=== PATIENT | male | born 1980 | race Caucasian/White ===

== ENCOUNTER 2016-04-18 17:13 | Emergency (ER) | payer OTHER ==
--- NOTE | 2016-04-18 19:04 | DIAGNOSTIC IMAGING REPORT ---
PROCEDURE: CT ABD/PELVIS WITH CONTRAST CLINICAL INDICATION: ABDOMINAL PAIN, initial encounter TECHNIQUE: 94 ml of Isovue 300 were injected intravenously and axial images were obtained of the entire abdomen and pelvis with sagittal and coronal reformations. COMPARISON: CT abdomen/pelvis 11/27/2015 FINDINGS: ABDOMEN: Wall thickening of the ascending and proximal transverse colon suggestive of colitis. There is fluid in the descending colon. There are multiple nondilated fluid filled loops of small bowel. Lung base are clear. Heart size is normal. Liver, gallbladder, pancreas, spleen, adrenal glands, kidneys and abdominal aorta are normal. PELVIS: Normal appendix. There is no pelvic mass, inflammatory changes or free fluid. Mild L5-S1 disc space narrowing. IMPRESSION: 1. Findings suggestive of colitis and enterocolitis 2. Results discussed with Jackeline Dunn All CT scans at this facility use dose modulation, iterative reconstruction, and/or weight-based dosing when appropriate to reduce radiation dose to as low as reasonably achievable.
--- NOTE | 2016-04-18 19:06 | ED CLINICAL REPORT ---
Clinical Report - Physicians/Mid Levels [facility] [address] [place] [address] 04/18/2016 17:14 Patient: CARLYLE OCONNOR Time Seen: 17:43 Apr 18 2016. Arrived- By private vehicle. Historian- patient. HISTORY OF PRESENT ILLNESS Chief Complaint: ABDOMINAL PAIN. It is described as "pain". (Patient reports off and on abdominal pain since November, has had hematochezia. Abd pain with diarrhea. REports no fevers/ back pain.). Recent medical care: The patient was seen recently by a health care provider (office on the with lab work, and dropped off stool sample today). REVIEW OF SYSTEMS No constipation, difficulty with urination, pain with urination, fever or headache. No sore throat, cough or chills. All systems otherwise negative, except as recorded above. SOCIAL HISTORY Former smoker. Alcohol use. ADDITIONAL NOTES The nursing notes have been reviewed. PHYSICAL EXAM Vital Signs: 04/18/2016 17:22 BP: 113/78. HR: 78. RR: 12. O2 saturation: 100%. Temp: 98.4 F. Pain level now: 5/10. Appearance: Alert. Eyes: Eyes normal inspection. ENT: Ears normal. Nose normal. CVS: Normal heart rate and rhythm. Heart sounds normal. Respiratory: No respiratory distress. Breath sounds normal. Abdomen: Soft. Tenderness. Back: Normal inspection. No CVA tenderness. Skin: Skin warm. Normal skin color. Neuro: Oriented X 3. No motor deficit. LABS, X-RAYS, AND EKG Abdominal CT: IMPRESSION: 1. Findings suggestive of colitis and enterocolitis 2. Results discussed with Jackeline Dunn All CT scans at this facility use dose modulation, iterative reconstruction, and/or weight-based dosing when appropriate to reduce radiation dose to as low as reasonably achievable. Electronically Final signed by:Brendan Louis MD 04/18/2016 7:04:27 PM. Laboratory Tests: CBC w Diff: (ANGELICA: 04/18/2016 17:50) ( MsgRcvd 04/18/2016 18:43) Final results Test Result Flag Units (Reference) WHITE BLOOD COUNT 7.8 K/uL (4.5-11.5) RED BLOOD COUNT 5.04 M/uL (4.50-5.90) HEMOGLOBIN 14.9 gm/dL (13.5-17.5) HEMATOCRIT 44.4 % (41.0-53.0) MEAN CELL VOLUME 88 fL (80-100) MEAN CORPUSCULAR HGB 30 pg (26-34) MEAN CORPUSCULAR HGB CONC 34 g/dL (31-37) RED CELL DISTRIBUTION WIDTH 13.5 % (11.6-14.8) PLATELET COUNT 326 K/uL (150-400) NEUTROPHIL % 62.2 % (50-75) LYMPH % 27.8 % (25-40) MONO % 6.2 % (3-14) EOSINOPHIL % 3.6 % (0-4) BASOPHIL % 0.2 % (0-2) CMP: (ANGELICA: 04/18/2016 17:50) ( MsgRcvd 04/18/2016 19:00) Final results Test Result Flag Units (Reference) GLUCOSE 109 mg/dL (70-110) BUN 13 mg/dL (7-18) CREATININE 0.9 mg/dL (0.6-1.3) Estimated GFR >60 mL/min Estimated GFR- >60 mL/min Note: Persistent reduction over 3 months in eGFR<60 mL/min/1.73 m2 defines CKD. Patients with eGFR values>=60 mL/min/1.73 m2 may also have CKD if evidence ofpersistent proteinuria. Additional information may be foundat www.kidney.org. SODIUM 140 mmol/L (136-145) POTASSIUM 4.9 mmol/L (3.5-5.1) CHLORIDE 108 H mmol/L (98-107) CARBON DIOXIDE 22 mmol/L (21-32) CALCIUM 8.5 mg/dL (8.5-10.1) TOTAL PROTEIN 7.6 g/dL (6.4-8.2) ALBUMIN 3.9 g/dL (3.3-5.0) BILIRUBIN, TOTAL 0.4 mg/dL (0.0-1.0) ALKALINE PHOSPHATASE 85 U/L (46-116) AST (SGOT) 20 U/L (15-37) ALT (SGPT) 21 U/L (12-78) . PROGRESS AND PROCEDURES Course of Care: Pt denies any masses of external rectum, deferred rectal exam as he reports he recently had stool for sample. here in the ER labs are unremarkable, CT abdomen and pelvis with signs of colitis, may be chronic in nature, patient is referred to surgery or GI, to consider ulcerative colitis, and other diagnoses of such. Denies any family history of. Otherwise here in the ER afebrile, and a nonsurgical abdomen is present. Patient/family counseled. Differential Diagnosis: I considered gastritis, intraabdominal abscess, ascites, spontaneous bacterial peritonitis, urinary tract infection, cystitis, prostatitis, ureterolithiasis, ovarian cyst, ovarian torsion and pelvic abscess as a possible cause of abdominal pain in this patient. This is a partial list of diagnoses considered. Disposition: Discharged. CLINICAL IMPRESSION Acute abdominal pain of unknown cause. Chronic colitis. INSTRUCTIONS Drink plenty of fluids. Prescription Medications: Ultram 50 mg: take 1 orally every 6 hours for 3 days, as needed for pain. Dispense fifteen (15). No refills. Substitution is permissible. Follow-up: Follow up with your doctor in three days. Follow-up with: Dean Blanton MD, General Surgeon, , [facility], [address] [place] [address] (Electronically signed by Kathia Dunn P.A.-C 04/18/2016 19:13)
--- NOTE | 2016-04-18 19:06 | ED ORDER SUMMARY ---
..... Patient: CARLYLE OCONNOR OrderSheet [facility] VisitID: [id number] [address] [place] [address] 35y, M Registration Date/Time: 04/18/2016 ORDER SHEET Weight: 62.5 kg (stated) Allergies: Codeine, Penicillins GENERAL ORDERS: CBC w Diff Urgent (18:00 04/18/2016 EKoroleva P.A.-C) (Ack 18:03 LTapper) (18:36 EHassan R.N.) CMP Urgent (18:00 04/18/2016 EKoroleva P.A.-C) (Ack 18:03 LTapper) (18:36 EHassan R.N.) PT with INR Urgent (18:00 04/18/2016 EKoroleva P.A.-C) (Ack 18:03 LTapper) (18:36 EHassan R.N.) PTT Urgent (18:00 04/18/2016 EKoroleva P.A.-C) (Ack 18:03 LTapper) (18:36 EHassan R.N.) CT Abd/Pel w Cont (No) (03.20) Urgent (18:21 04/18/2016 EKoroleva P.A.-C) (Ack 18:36 EHassan R.N.) (18:39 LTapper) MEDICATION ORDERS: IV FLUIDS: IV Saline Lock (18:00 04/18/2016 EKoroleva P.A.-C) (18:36 EHassan R.N.) ORDER SHEET NOTES: [Electronically signed by Kathia DunnAShannan-C (19:13 04/18/2016)] [Electronically signed by Colleen Jennings R.N. (19:29 04/18/2016)] [Electronically locked/signed by Colleen Jennings R.N. (19:04/18/2016)]
--- NOTE | 2016-04-18 19:06 | ED NURSING NOTES ---
Clinical Report - Nurses [facility] [address] [place] [address] 04/18/2016 17:14 Patient: CARLYLE OCONNOR TRIAGE Triage time 1720 PM. Acuity: LEVEL 3. Chief Complaint: ABDOMINAL PAIN, NAUSEA, VOMITING and DIARRHEA. Alert. No acute distress. SEPSIS SCREEN: Sepsis Screen. Negative (no infection suspected/documented). MONIK COMA SCORE: Monik Coma Scale: 15- eyes open spontaneously (4); best verbal response- oriented x 4 (5); best motor response- obeys commands (6). --17:34 Colleen Jennings R.N. 17:22 04/18/16. BP: 113/78 (regular adult cuff) taken on the left arm, via an automated monitor, while sitting. HR: 78. RR: 12. O2 saturation: 100% on room air. Temp: 98.4 F (oral). Pain level now: 07/27. --17:34 Colleen Jennings R.N. Weight: 62.5 kg stated. Height/Length: 68 inches Per Patient. BMI: 21. --17:26 Colleen Jennings R.N. Medications Albuterol Sulfate HFA Inhalation. --17:26 Colleen Jennings R.N. Medication/allergy information source: the patient. --17:34 Colleen Jennings R.N. Allergies Codeine. Penicillins. --17:26 Colleen Jennings R.N. History Arrived by private vehicle, and accompanied by family. Primary physician (Dr. Noonan). ( PT states came to ED due to recurrent bloody stools, abdominal pain, cramping, weak, fatigue, diarrhea approximately 12 times to 20 times a day, mucous. Has been seen multiple times in . Has come here "because I cannot take the pain and abdominal pain"). ( This started since Nov a trip from [place], has been seen multiple times for this and has been tested "but everything comes back negative"). He has had fever, nausea, vomiting, diarrhea and abdominal pain. Treatment ACCESS CONTROL OFFICER: None. PAST MEDICAL HX: Immunizations: up-to-date. SOCIAL HX: Former smoker, end date 2003. Occasional alcohol use; consumes beer occasionally. No drug use. Recent travel. No infectious disease exposure. ABUSE ASSESSMENT: No report of abuse. SELF HARM ASSESSMENT: A self harm assessment was performed. The patient answered "no" to the question "Do you have thoughts of harming or killing yourself?" and "Have you recently had thoughts about harming or killing others?". FALL RISK ASSESSMENT: Fall risk assessment completed. No fall risk identified. NUTRITIONAL RISK ASSESSMENT: The nutritional risk assessment revealed no deficiencies. FUNCTIONAL ASSESSMENT: Functional assessment: no impairments noted. LEARNING NEEDS ASSESSMENT: The learning needs assessment revealed no barriers. SKIN INTEGRITY ASSESSMENT: Skin integrity risk assessment completed. No skin integrity risk identified. --17:34 Colleen Jennings R.N. PROBLEMS: Diarrhea. Vomiting. Abdominal Pain. GI Bleeding. Ureterolithiasis. Recent Travel. Asthma. --17:26 Colleen Jennings R.N. ADDITIONAL SURGERIES: no known surgeries. Interventions ID band on patient. --17:34 Colleen Jennings R.N. PHYSICAL ASSESSMENT Ambulatory to room. GENERAL / NEURO / PSYCH: Alert. Oriented X 4. Appears in no acute distress. HEENT: Mucous membranes are pink. RESPIRATORY: Respirations not labored. Breath sounds within normal limits. CVS: Capillary refill less than 2 seconds. GI / : The patient has had nausea. Abdomen soft. Abdominal tenderness. Hyperactive bowel sounds in all quadrants. Bowel sounds within normal limits. SKIN: Skin is warm and dry. --17:33 Colleen Jennings R.N. NURSING PROGRESS NOTES The initial plan of care for this patient has been created This plan of care was discussed with the patient. Patient gowned. Warming measures: blanket applied. Reassurance given. Two patient identifiers checked. Call light placed in reach. Side rails up x 1. Bed placed in lowest position. Brakes of bed on. Brakes of chair on. --17:33 Colleen Jennings R.N. 18:01 04/18/2016 Site #1 started via IV in the left antecubital space with an 20g angiocath; one attempt. Blood drawn. Saline lock flushed. --18:16 Colleen Jennings R.N. Reassurance given. ( Pt's IV on the right FA placed, but as per pt "it feels like you punched me on the arm", when flushed, IV taken out. New one placed on the left AC, labs sent but coagulated as per lab, attempted to draw blood from it, refusing another lab drawn. AMBER Logan aware, pt educated but stated "I botched him twice", apologized for feeling that way. Will monitor). --18:20 Colleen Jennings R.N. Patient walked back to ED from CT. (1842 PM). --18:42 Colleen Jennings R.N. DISPOSITION / DISCHARGE 19:24 04/18/2016 Site #1 removed upon discharge. Manual pressure and bandaid applied. --19:24 Colleen Jennings R.N. Departure time: 1925 PM. Condition at departure: unchanged and stable. The goals identified in the patient's plan of care were met. No learning barriers present. Reviewed medication(s) side effects, precautions, dosing and course information. Prescription(s) given to the patient. Reviewed referral to a surgeon for followup. Patient verbalized understanding. Written instructions provided in Turkish. ( Pt verbalizes understanding of instructions and follow-up, 1st IV site "which hurts" no drainage no redness, site intact. Script given to pt). The patient was discharged by the physician food and beverage assistant manager. He was discharged home and unaccompanied at time of discharge. He left the Emergency Department ambulatory and via private vehicle. FALL RISK ASSESSMENT: Fall risk assessment completed. No fall risk identified. --19:28 Colleen Jennings R.N. 19:20 04/18/16. BP: 125/78 (regular adult cuff) taken on the left arm, via an automated monitor, while lying. HR: 71. RR: 18. O2 saturation: 100% on room air. Temp: 98.2 F (oral). Pain level now: 08/27. --19:28 Colleen Jennings R.N. Locked/Released at 04/18/2016 19:29 by Colleen Jennings R.N.
--- NOTE | 2016-04-18 19:06 | ED ORDER SUMMARY ---
..... Patient: CARLYLE OCONNOR OrderSheet [facility] VisitID: [id number] [address] [place] [address] 35y, M Registration Date/Time: 04/18/2016 ORDER SHEET Weight: 62.5 kg (stated) Allergies: Codeine, Penicillins GENERAL ORDERS: CBC w Diff Urgent (18:00 04/18/2016 EKoroleva P.A.-C) (Ack 18:03 LTapper) (18:36 EHassan R.N.) CMP Urgent (18:00 04/18/2016 EKoroleva P.A.-C) (Ack 18:03 LTapper) (18:36 EHassan R.N.) PT with INR Urgent (18:00 04/18/2016 EKoroleva P.A.-C) (Ack 18:03 LTapper) (18:36 EHassan R.N.) PTT Urgent (18:00 04/18/2016 EKoroleva P.A.-C) (Ack 18:03 LTapper) (18:36 EHassan R.N.) CT Abd/Pel w Cont (No) (03.20) Urgent (18:21 04/18/2016 EKoroleva P.A.-C) (Ack 18:36 EHassan R.N.) (18:39 LTapper) MEDICATION ORDERS: IV FLUIDS: IV Saline Lock (18:00 04/18/2016 EKoroleva P.A.-C) (18:36 EHassan R.N.) ORDER SHEET NOTES: [Electronically signed by Kathia DunnAShannan-C (19:13 04/18/2016)] [Electronically signed by Colleen Jennings R.N. (19:29 04/18/2016)] [Electronically locked/signed by Colleen Jennings R.N. (19:04/18/2016)]
--- NOTE | 2016-04-18 19:06 | ED CLINICAL REPORT ---
Clinical Report - Physicians/Mid Levels [facility] [address] [place] [address] 04/18/2016 17:14 Patient: CARLYLE OCONNOR Time Seen: 17:43 Apr 18 2016. Arrived- By private vehicle. Historian- patient. HISTORY OF PRESENT ILLNESS Chief Complaint: ABDOMINAL PAIN. It is described as "pain". (Patient reports off and on abdominal pain since November, has had hematochezia. Abd pain with diarrhea. REports no fevers/ back pain.). Recent medical care: The patient was seen recently by a health care provider (office on the with lab work, and dropped off stool sample today). REVIEW OF SYSTEMS No constipation, difficulty with urination, pain with urination, fever or headache. No sore throat, cough or chills. All systems otherwise negative, except as recorded above. SOCIAL HISTORY Former smoker. Alcohol use. ADDITIONAL NOTES The nursing notes have been reviewed. PHYSICAL EXAM Vital Signs: 04/18/2016 17:22 BP: 113/78. HR: 78. RR: 12. O2 saturation: 100%. Temp: 98.4 F. Pain level now: 5/10. Appearance: Alert. Eyes: Eyes normal inspection. ENT: Ears normal. Nose normal. CVS: Normal heart rate and rhythm. Heart sounds normal. Respiratory: No respiratory distress. Breath sounds normal. Abdomen: Soft. Tenderness. Back: Normal inspection. No CVA tenderness. Skin: Skin warm. Normal skin color. Neuro: Oriented X 3. No motor deficit. LABS, X-RAYS, AND EKG Abdominal CT: IMPRESSION: 1. Findings suggestive of colitis and enterocolitis 2. Results discussed with Jackeline Dunn All CT scans at this facility use dose modulation, iterative reconstruction, and/or weight-based dosing when appropriate to reduce radiation dose to as low as reasonably achievable. Electronically Final signed by:Brendan Louis MD 04/18/2016 7:04:27 PM. Laboratory Tests: CBC w Diff: (ANGELICA: 04/18/2016 17:50) ( MsgRcvd 04/18/2016 18:43) Final results Test Result Flag Units (Reference) WHITE BLOOD COUNT 7.8 K/uL (4.5-11.5) RED BLOOD COUNT 5.04 M/uL (4.50-5.90) HEMOGLOBIN 14.9 gm/dL (13.5-17.5) HEMATOCRIT 44.4 % (41.0-53.0) MEAN CELL VOLUME 88 fL (80-100) MEAN CORPUSCULAR HGB 30 pg (26-34) MEAN CORPUSCULAR HGB CONC 34 g/dL (31-37) RED CELL DISTRIBUTION WIDTH 13.5 % (11.6-14.8) PLATELET COUNT 326 K/uL (150-400) NEUTROPHIL % 62.2 % (50-75) LYMPH % 27.8 % (25-40) MONO % 6.2 % (3-14) EOSINOPHIL % 3.6 % (0-4) BASOPHIL % 0.2 % (0-2) CMP: (ANGELICA: 04/18/2016 17:50) ( MsgRcvd 04/18/2016 19:00) Final results Test Result Flag Units (Reference) GLUCOSE 109 mg/dL (70-110) BUN 13 mg/dL (7-18) CREATININE 0.9 mg/dL (0.6-1.3) Estimated GFR >60 mL/min Estimated GFR- >60 mL/min Note: Persistent reduction over 3 months in eGFR<60 mL/min/1.73 m2 defines CKD. Patients with eGFR values>=60 mL/min/1.73 m2 may also have CKD if evidence ofpersistent proteinuria. Additional information may be foundat [email or web address].org. SODIUM 140 mmol/L (136-145) POTASSIUM 4.9 mmol/L (3.5-5.1) CHLORIDE 108 H mmol/L (98-107) CARBON DIOXIDE 22 mmol/L (21-32) CALCIUM 8.5 mg/dL (8.5-10.1) TOTAL PROTEIN 7.6 g/dL (6.4-8.2) ALBUMIN 3.9 g/dL (3.3-5.0) BILIRUBIN, TOTAL 0.4 mg/dL (0.0-1.0) ALKALINE PHOSPHATASE 85 U/L (46-116) AST (SGOT) 20 U/L (15-37) ALT (SGPT) 21 U/L (12-78) . PROGRESS AND PROCEDURES Course of Care: Pt denies any masses of external rectum, deferred rectal exam as he reports he recently had stool for sample. here in the ER labs are unremarkable, CT abdomen and pelvis with signs of colitis, may be chronic in nature, patient is referred to surgery or GI, to consider ulcerative colitis, and other diagnoses of such. Denies any family history of. Otherwise here in the ER afebrile, and a nonsurgical abdomen is present. Patient/family counseled. Differential Diagnosis: I considered gastritis, intraabdominal abscess, ascites, spontaneous bacterial peritonitis, urinary tract infection, cystitis, prostatitis, ureterolithiasis, ovarian cyst, ovarian torsion and pelvic abscess as a possible cause of abdominal pain in this patient. This is a partial list of diagnoses considered. Disposition: Discharged. CLINICAL IMPRESSION Acute abdominal pain of unknown cause. Chronic colitis. INSTRUCTIONS Drink plenty of fluids. Prescription Medications: Ultram 50 mg: take 1 orally every 6 hours for 3 days, as needed for pain. Dispense fifteen (15). No refills. Substitution is permissible. Follow-up: Follow up with your doctor in three days. Follow-up with: Dean Blanton MD, General Surgeon, , [facility], [address] [place] [address] (Electronically signed by Kathia Dunn P.A.-C 04/18/2016 19:13)
--- NOTE | 2016-04-18 19:29 | ED MED RECONCILIATION SUMMARY ---
Patient: CARLYLE OCONNOR Medication Reconciliation Report [facility] VisitID: [id number] [address] [place] [address] 35y, M Registration Date/Time: 04/18/2016 Weight: 62.5 kg Height/Length: 68 in. BMI: 21.0 ALLERGIES: Codeine, Penicillins The patient's Home Medications are listed below: THE FOLLOWING MEDICATIONS NEED TO BE RECONCILED: Albuterol Sulfate HFA Inhalation The source(s) of the original Home Medication information: patient The following Medications were given to the patient in the Emergency Department: None. The following Medications were prescribed to the patient: Ultram 50 mg: take 1 orally every 6 hours for 3 days, as needed for pain. Dispense fifteen (15). No refills. Substitution is permissible. -- Kathia Dunn P.A.-C
--- NOTE | 2016-04-18 19:29 | ED MAR SUMMARY ---
..... Medication Administration Record [facility] [address] [place], [place] [id number] Patient: CARLYLE OCONNOR Visit ID: [id number] 35y, M Weight: 62.5 kg Height/Length: 68 in BMI: 21 ALLERGIES: Codeine, Penicillins
--- NOTE | 2016-04-18 19:29 | ED DISCHARGE INSTRUCTIONS ---
Patient: CARLYLE OCONNOR General Instructions [facility] VisitID: [id number] [address] [place], [place] [id number] 35y, M Registration Date/Time: 04/18/2016 Acute abdominal pain of unknown cause. Chronic colitis. INSTRUCTIONS Drink plenty of fluids. Prescription Medications: Ultram 50 mg: take 1 orally every 6 hours for 3 days, as needed for pain. Dispense fifteen (15). No refills. Substitution is permissible. Follow-up: Follow up with your doctor in three days. Follow-up with: Dean Blanton MD, General Surgeon, , [facility], [address] [place] [address], [facility] [id number] ADDITIONAL INFORMATION Symptoms With Uncertain Cause [Adult] Based on the exam and any tests that were performed today, the exact cause of your symptoms is not certain. While your condition does not seem serious, the signs of a serious problem may take more time to appear. Therefore, it is important for you to watch for any new symptoms or worsening of your condition.Follow up with your doctor or this facility, as directed.A repeat physical exam or additional testing at a later time may uncover a cause for your symptoms that is not evident today. Home Care: Resume your usual activities and diet when this feels comfortable to do so. Follow Up with your doctor, or as advised by our staff.Contact your doctor sooner if your symptoms do not begin to improve in the next few days. [NOTE: If you had an x-ray, CT scan, ultrasound, or ECG (electrocardiogram), it will be reviewed by a specialist. You will be notified of any new findings that may affect your care.] Get Prompt Medical Attention if any of the following occur: Current symptoms get worse New symptoms appear [place] Diet A bland diet is used for patients with an upset stomach. It consists of foods that are mild and easy to digest. It is better to eat small frequent meals rather than three large meals a day. BEVERAGES OK: Fruit juices, non-caffeinated teas and coffee, non-carbonated haley AVOID: Carbonated beverage, caffeinated tea and coffee, all alcoholic beverages BREAD OK: Refined white, wheat or rye bread, whit or soda crackers, [place] toast, plain rolls, bagels AVOID: Whole-grain bread CEREAL OK: Refined cereals: cooked or ready to eat AVOID: Whole grain cereals and granola, or those containing bran, seeds or nuts DESSERTS OK: Peanut butter and all others except those to "avoid" AVOID: Chocolate, cocoa, coconut, popcorn, nuts, seeds, jam, marmalade FRUITS OK: Canned, cooked, frozen or fresh fruits without seeds or tough skin AVOID: Olives, skin and seeds of fruit MEATS OK: All fresh or preserved meat, fish and fowl AVOID: Any that are prepared with those spices to "avoid" CHEESE & EGGS OK: Eggs, cottage cheese, cream cheese, other cheeses AVOID: All cheeses made with those spices to "avoid" POTATOES & PASTA OK: Potato, rice, macaroni, noodles, spaghetti AVOID: None SOUPS OK: All soups without heavy seasoning AVOID: Soups made with those spices to "avoid" VEGETABLES OK: Canned, cooked, fresh or frozen mildly flavored vegetables without seeds, skins or coarse fiber AVOID: Vegetables prepared with those spices to "avoid"; skin and seeds of vegetables and those with coarse fiber SPICES OK: Salt, lemon and [place] juice, vinegar, all extracts, ciarra, cinnamon, thyme, mace, allspice, paprika AVOID: [place] powder, cloves, pepper, seed spices, garlic, gravy pickles, highly seasoned salad dressings Clear Liquid Diet Clear liquids are any liquid that you can see through as well as those that are very easy to digest. This is used while the body is recovering from irritation or infection of the stomach or intestinal tract. It may also be used before special procedures or surgery. This diet is to be used no more than three days. You may include the following items. Adults Adults should drink a total of 23 quarts of liquid per day. It may be easier to drink small frequent servings rather than a few large ones. Liquids can include: Fruit juices.Strained orange juice or lemonade (no pulp), apple, grape and cranberry juice, clear fruit drinks, sports drinks Beverages.Sport drinks, sodas, mineral water (plain or flavored), tea, black coffee, liquid gelatin (add twice the recommended amount of water) Soups.Clear broth, consomm, bouillon Desserts.Plain gelatin, popsicles, fruit juice bars Children Over 2 years old The following liquids are acceptable for children over age 2: Fruit juices.Strained orange juice or lemonade (no pulp), apple, grape and cranberry juice, clear fruit drinks Beverages. Sports drinks, sodas, mineral water (plain or flavored), tea, liquid gelatin (add twice the recommended amount of water) Soups. Clear broth, consomm, bouillon Desserts. Plain gelatin, popsicles, fruit juice bars Children under 2 years old Oral rehydration fluids such are available at drug stores and most grocery stores without a prescription. You have been given the following additional information: Symptoms With Uncertain Cause Diet, [place] (Adult) Diet, Clear Liquid (Electronically signed by Kathia Dunn P.A.-C 04/18/2016 19:13)
--- NOTE | 2016-04-18 19:29 | ED DISCHARGE INSTRUCTIONS ---
Patient: CARLYLE OCONNOR General Instructions [facility] VisitID: [id number] [address] [place], [place] [id number] 35y, M Registration Date/Time: 04/18/2016 Acute abdominal pain of unknown cause. Chronic colitis. INSTRUCTIONS Drink plenty of fluids. Prescription Medications: Ultram 50 mg: take 1 orally every 6 hours for 3 days, as needed for pain. Dispense fifteen (15). No refills. Substitution is permissible. Follow-up: Follow up with your doctor in three days. Follow-up with: Dean Blanton MD, General Surgeon, , [facility], [address] [place] [address], [facility] [id number] ADDITIONAL INFORMATION Symptoms With Uncertain Cause [Adult] Based on the exam and any tests that were performed today, the exact cause of your symptoms is not certain. While your condition does not seem serious, the signs of a serious problem may take more time to appear. Therefore, it is important for you to watch for any new symptoms or worsening of your condition.Follow up with your doctor or this facility, as directed.A repeat physical exam or additional testing at a later time may uncover a cause for your symptoms that is not evident today. Home Care: Resume your usual activities and diet when this feels comfortable to do so. Follow Up with your doctor, or as advised by our staff.Contact your doctor sooner if your symptoms do not begin to improve in the next few days. [NOTE: If you had an x-ray, CT scan, ultrasound, or ECG (electrocardiogram), it will be reviewed by a specialist. You will be notified of any new findings that may affect your care.] Get Prompt Medical Attention if any of the following occur: Current symptoms get worse New symptoms appear [place] Diet A bland diet is used for patients with an upset stomach. It consists of foods that are mild and easy to digest. It is better to eat small frequent meals rather than three large meals a day. BEVERAGES OK: Fruit juices, non-caffeinated teas and coffee, non-carbonated haley AVOID: Carbonated beverage, caffeinated tea and coffee, all alcoholic beverages BREAD OK: Refined white, wheat or rye bread, whit or soda crackers, [place] toast, plain rolls, bagels AVOID: Whole-grain bread CEREAL OK: Refined cereals: cooked or ready to eat AVOID: Whole grain cereals and granola, or those containing bran, seeds or nuts DESSERTS OK: Peanut butter and all others except those to "avoid" AVOID: Chocolate, cocoa, coconut, popcorn, nuts, seeds, jam, marmalade FRUITS OK: Canned, cooked, frozen or fresh fruits without seeds or tough skin AVOID: Olives, skin and seeds of fruit MEATS OK: All fresh or preserved meat, fish and fowl AVOID: Any that are prepared with those spices to "avoid" CHEESE & EGGS OK: Eggs, cottage cheese, cream cheese, other cheeses AVOID: All cheeses made with those spices to "avoid" POTATOES & PASTA OK: Potato, rice, macaroni, noodles, spaghetti AVOID: None SOUPS OK: All soups without heavy seasoning AVOID: Soups made with those spices to "avoid" VEGETABLES OK: Canned, cooked, fresh or frozen mildly flavored vegetables without seeds, skins or coarse fiber AVOID: Vegetables prepared with those spices to "avoid"; skin and seeds of vegetables and those with coarse fiber SPICES OK: Salt, lemon and [place] juice, vinegar, all extracts, ciarra, cinnamon, thyme, mace, allspice, paprika AVOID: [place] powder, cloves, pepper, seed spices, garlic, gravy pickles, highly seasoned salad dressings Clear Liquid Diet Clear liquids are any liquid that you can see through as well as those that are very easy to digest. This is used while the body is recovering from irritation or infection of the stomach or intestinal tract. It may also be used before special procedures or surgery. This diet is to be used no more than three days. You may include the following items. Adults Adults should drink a total of 23 quarts of liquid per day. It may be easier to drink small frequent servings rather than a few large ones. Liquids can include: Fruit juices.Strained orange juice or lemonade (no pulp), apple, grape and cranberry juice, clear fruit drinks, sports drinks Beverages.Sport drinks, sodas, mineral water (plain or flavored), tea, black coffee, liquid gelatin (add twice the recommended amount of water) Soups.Clear broth, consomm, bouillon Desserts.Plain gelatin, popsicles, fruit juice bars Children Over 2 years old The following liquids are acceptable for children over age 2: Fruit juices.Strained orange juice or lemonade (no pulp), apple, grape and cranberry juice, clear fruit drinks Beverages. Sports drinks, sodas, mineral water (plain or flavored), tea, liquid gelatin (add twice the recommended amount of water) Soups. Clear broth, consomm, bouillon Desserts. Plain gelatin, popsicles, fruit juice bars Children under 2 years old Oral rehydration fluids such are available at drug stores and most grocery stores without a prescription. You have been given the following additional information: Symptoms With Uncertain Cause Diet, [place] (Adult) Diet, Clear Liquid (Electronically signed by Kathia Dunn P.A.-C 04/18/2016 19:13)
--- NOTE | 2016-04-18 19:29 | ED MAR SUMMARY ---
..... Medication Administration Record [facility] [address] [place], [place] [id number] Patient: CARLYLE OCONNOR Visit ID: [id number] 35y, M Weight: 62.5 kg Height/Length: 68 in BMI: 21 ALLERGIES: Codeine, Penicillins
--- NOTE | 2016-04-18 19:29 | ED MED RECONCILIATION SUMMARY ---
Patient: CARLYLE OCONNOR Medication Reconciliation Report [facility] VisitID: [id number] [address] [place] [address] 35y, M Registration Date/Time: 04/18/2016 Weight: 62.5 kg Height/Length: 68 in. BMI: 21.0 ALLERGIES: Codeine, Penicillins The patient's Home Medications are listed below: THE FOLLOWING MEDICATIONS NEED TO BE RECONCILED: Albuterol Sulfate HFA Inhalation The source(s) of the original Home Medication information: patient The following Medications were given to the patient in the Emergency Department: None. The following Medications were prescribed to the patient: Ultram 50 mg: take 1 orally every 6 hours for 3 days, as needed for pain. Dispense fifteen (15). No refills. Substitution is permissible. -- Kathia Dunn P.A.-C
== END 2016-04-18 19:25 | disposition home or self-care (01) ==
LOC: ED SRH 17:13
DX: K52.9 Noninfective gastroenteritis and colitis, unspecified (principal); R10.9 Unspecified abdominal pain; Z87.891 Personal history of nicotine dependence
CPT/HCPCS: 90100; 95059